=== PATIENT | male | born 1995 | race African-American/Black ===

== ENCOUNTER 2019-10-11 21:39 | Emergency (ER) | payer OTHER ==
[~2019-10-11] VITALS: Ht 167.6 cm; Wt 95.3 kg
[2019-10-11 21:41] VITALS: BP 141/81
[2019-10-11] MEDS ORDERED: ALBUTEROL2.5 MG/0.1 INH (23:43)
[2019-10-12] MEDS ORDERED: PREDNISONE 20 M20 MG PO (00:21)
[2019-10-12] MEDS ORDERED: TESSALON PERLE100 MG PO (00:21)
[2019-10-12] MEDS ORDERED: NAPROSYN500 MG PO (00:21)
== END 2019-10-12 00:52 | disposition home or self-care (01) ==
LOC: ER 21:39
DX: M94.0 Chondrocostal junction syndrome [Tietze] (principal); J06.9 Acute upper respiratory infection, unspecified; R05 Cough; R09.89 Other specified symptoms and signs involving the circulatory and respiratory systems; J45.909 Unspecified asthma, uncomplicated